=== PATIENT | female | born 1985 | race Two or more races ===

== ENCOUNTER 2016-07-05 12:09 | Emergency (ER) | payer MEDICAID ==
[~2016-07-05] VITALS: Ht 154.9 cm; Wt 68.0 kg
[2016-07-05 12:27] VITALS: BP 131/82
[2016-07-05] MEDS ORDERED: KETOROLAC TROMETH 60MG/2ML VIAL IM ONE (14:15)
== END 2016-07-05 14:33 | disposition home or self-care (01) ==
LOC: ER 12:09
DX: G43.909 Migraine, unspecified, not intractable, without status migrainosus (principal); R42 Dizziness and giddiness; R11.0 Nausea
CPT/HCPCS: 70450; 99284; J1885

== ENCOUNTER 2016-11-22 15:00 | Emergency (ER) | payer MEDICAID ==
[~2016-11-22] VITALS: Ht 154.9 cm; Wt 69.4 kg
[2016-11-22 15:48] VITALS: BP 160/90
[2016-11-22] MEDS ORDERED: KETOROLAC TROMETH 60MG/2ML VIAL IM ONE (17:30)
== END 2016-11-22 18:00 | disposition home or self-care (01) ==
LOC: ER 15:03
DX: G43.909 Migraine, unspecified, not intractable, without status migrainosus (principal); R42 Dizziness and giddiness
CPT/HCPCS: 70450; 96372; 99284; J1885

== ENCOUNTER 2021-07-12 07:30 | Emergency (ER) | payer BC, MEDICAID ==
[~2021-07-12] VITALS: Ht 154.9 cm; Wt 68.0 kg
[2021-07-12 07:31] VITALS: BP 118/80
[2021-07-12 08:23] LABS: Urine Bacteria NONE SEEN /hpf (None Seen); Urine Blood Negative /uL (Negative); Urine Specific Gravity 1.014 (1.001-1.035); Urine WBC 6 /hpf (0 - 5)
[2021-07-12] MEDS ORDERED: KETOROLAC TROMETH 60MG/2ML VIAL IM ONE (08:30)
[2021-07-12] MEDS ORDERED: METH750T22 PO (08:57)
[2021-07-12] MEDS ORDERED: IBUP800T27 PO (08:57)
== END 2021-07-12 09:02 | disposition home or self-care (01) ==
LOC: ER 07:30
DX: S39.012A Strain of muscle, fascia and tendon of lower back, initial encounter (principal); M79.10 Myalgia, unspecified site; Z90.710 Acquired absence of both cervix and uterus; X58.XXXA Exposure to other specified factors, initial encounter; Y93.89 Activity, other specified; Y92.89 Other specified places as the place of occurrence of the external cause; Y99.8 Other external cause status
CPT/HCPCS: 71046; 81001; 96372; 99284; J1885

== ENCOUNTER 2021-08-17 20:08 | Emergency (ER) | payer BC, MEDICAID ==
[~2021-08-17] VITALS: Ht 154.9 cm; Wt 74.6 kg
[~2021-08-17 20:08] MED LIST: IBUP800T27 PO; METH750T22 PO
[2021-08-17 21:33] LABS: Basophils # (auto) 0.1 10 ^3/uL (0-0.2); Basophils % (auto) 1.6 % (0.0-2.0); Eosinophils # (auto) 0 10 ^3/uL (0-0.8); Eosinophils % (auto) 0.2 % (0.0-7.0); Hematocrit 39.7 % (36.0-46.0); Hemoglobin 13.6 g/dL (12.2-16.2); Lymphocytes # (auto) 0.6 10 ^3/uL (0.4-5.4); Lymphocytes % (auto) 6.7 % (10.0-50.0); Mean Corpuscular Hemoglobin 28.3 pg (28.0-32.0); Mean Corpuscular Hgb Conc. 34.4 g/dL (32.0-36.0); Mean Corpuscular Volume 82.3 fL (80.0-100.0); Monocytes # (auto) 0.5 10 ^3/uL (0-1.3); Monocytes % (auto) 5.6 % (0.0-12.0); Neutrophils # (auto) 8.2 10 ^3/uL (1.6-8.6); Neutrophils % (auto) 85.9 % (37.0-80.0); Red Blood Cells 4.82 10^6/uL (4.0-5.20); Red Cell Distribution Width 12.9 % (11.8-14.3); White Blood Cell 9.5 10^3/uL (4.4-10.8)
[2021-08-17 21:34] LABS: Urine Bacteria NONE SEEN /hpf (None Seen); Urine Blood Negative /uL (Negative); Urine Specific Gravity 1.012 (1.001-1.035); Urine WBC 10 /hpf (0 - 5)
[2021-08-17 21:45] LABS: Albumin 3.9 g/dL (3.4-5.0); Calcium 9.6 mg/dL (8.5-10.1); Potassium 3.8 mmol/L (3.5-5.1)
[2021-08-17] MEDS ORDERED: ACETAMINOPHEN 325 MG TAB PO ONE (21:45)
[2021-08-17 21:48] LABS: BUN/Creatinine Ratio 15.2; Bilirubin, Total 0.3 mg/dL (0.2-1.0); Lactic Acid w/Reflex 2.2 mmol/L (0.4-2.0)
[2021-08-17] MEDS ORDERED: IOHEXOL 300 MG/ML 100ML BOTTLE IJ ONE (22:57)
[2021-08-17] MEDS ORDERED: ONDANSETRON HCL 4 MG/2 ML VIAL IV ONE (23:00)
[2021-08-17] MEDS ORDERED: SODIUM CHLORIDE 0.9% 1,000 ML IV ONE (23:00)
[2021-08-17] MEDS ORDERED: MORPHINE SULFATE 4 MG/ML SYR/VIAL IV ONE (23:00)
[2021-08-18 03:53] VITALS: BP 93/48
== END 2021-08-18 03:54 | disposition home or self-care (01) ==
LOC: ER 20:08
DX: R10.9 Unspecified abdominal pain (principal); Z90.710 Acquired absence of both cervix and uterus; Z88.6 Allergy status to analgesic agent
CPT/HCPCS: 36415; 74177; 80053; 81001; 83605; 85025; 87086; 87088; 87186; 96361; 96374; 96375; 99285; J2270; J2405; J7030; Q9967

== ENCOUNTER 2022-05-02 22:02 | Emergency (ER) | payer BC, MEDICAID ==
[~2022-05-02] VITALS: Ht 154.9 cm; Wt 86.4 kg
[2022-05-03] MEDS ORDERED: MORPHINE SULFATE 4 MG/ML SYR/VIAL IV ONE ×2 (00:30→01:00)
[2022-05-03] MEDS ORDERED: ONDANSETRON HCL 4 MG/2 ML VIAL IV ONE ×2 (00:30→01:00)
[2022-05-03] MEDS ORDERED: ONDA-144 PO (02:12)
[2022-05-03] MEDS ORDERED: HYDR-4798 PO (02:12)
[2022-05-03 02:23] VITALS: BP 125/82
== END 2022-05-03 03:40 | disposition home or self-care (01) ==
LOC: ER 22:02 → EDBD 22:02 → ER 05-03 03:39
DX: S82.301A Unspecified fracture of lower end of right tibia, initial encounter for closed fracture (principal); E78.5 Hyperlipidemia, unspecified; Z90.710 Acquired absence of both cervix and uterus; Z79.1 Long term (current) use of non-steroidal anti-inflammatories (NSAID); Z79.899 Other long term (current) drug therapy; Z88.8 Allergy status to other drugs, medicaments and biological substances; W18.39XA Other fall on same level, initial encounter; Y93.89 Activity, other specified; Y92.89 Other specified places as the place of occurrence of the external cause; Y99.8 Other external cause status
CPT/HCPCS: 29515; 73502; 73600; 96374; 96375; 99284; J2270; J2405

== ENCOUNTER 2024-04-07 06:56 | Observation (INO) | payer MEDICAID ==
[2024-04-05 10:50] LABS: Urine Bacteria None Seen /hpf (None Seen)
[2024-04-05 11:56] LABS: Basophils # (auto) 0 10 ^3/uL (0-0.2); Basophils % (auto) 0.6 % (0.0-2.0); Eosinophils # (auto) 0.2 10 ^3/uL (0-0.8); Eosinophils % (auto) 2.9 % (0.0-7.0); Hematocrit 40.3 % (36.0-46.0); Hemoglobin 13.4 g/dL (12.2-16.2); Lymphocytes # (auto) 1.7 10 ^3/uL (0.4-5.4); Lymphocytes % (auto) 30.1 % (10.0-50.0); Mean Corpuscular Hemoglobin 28.3 pg (28.0-32.0); Mean Corpuscular Hgb Conc. 33.1 g/dL (32.0-36.0); Mean Corpuscular Volume 85.4 fL (80.0-100.0); Monocytes # (auto) 0.3 10 ^3/uL (0-1.3); Monocytes % (auto) 5.4 % (0.0-12.0); Neutrophils # (auto) 3.4 10 ^3/uL (1.6-8.6); Nucleated Red Blood Cells % 0.1 %; Platelet Count (auto) 268 10^3/uL (140-450); Red Blood Cells 4.72 10^6/uL (4.0-5.20); Red Cell Distribution Width 13.1 % (11.8-14.3); White Blood Cell 5.6 10^3/uL (4.4-10.8)
[2024-04-05 12:12] LABS: Alanine Aminotransferase 22 U/L (7-40); Albumin 4.3 g/dL (3.2-4.8); Alkaline Phosphatase 106 U/L (46-116); Anion Gap 5 (5-15); Aspartate Aminotransferase 21 U/L (13-40); BUN/Creatinine Ratio 14.9 (10.0-20.0); Blood Urea Nitrogen 11 mg/dL (9-23); Calcium 9.9 mg/dL (8.7-10.4); Carbon Dioxide 31 mmol/L (20-31); Chloride 105 mmol/L (98-107); Potassium 4.2 mmol/L (3.5-5.1); Sodium 141 mmol/L (136-145)
[2024-04-05 12:14] LABS: Bilirubin, Total 0.3 mg/dL (0.2-1.0); Urine Blood Negative /uL (Negative); Urine Clarity Turbid (Clear); Urine Color Light-Yellow (Yellow); Urine Protein, UAD Negative (Negative); Urine Specific Gravity 1.014 (1.001-1.035); Urine Squamous Epithelial Cell MOD /hpf (<5); Urine Urobilinogen Normal (Negative); Urine WBC 4 /HPF (0-5); Urine pH 7.5 (5.0-9.0)
[2024-04-05 12:16] LABS: Glucose 72 mg/dL (74-106)
[2024-04-05 12:23] LABS: INR 0.98 (0.9-1.15); Partial Thromboplastin Time 28.2 SEC (24.5-34.5); Prothrombin Time 10.4 sec (9.3-11.8)
[~2024-04-07] VITALS: Ht 154.9 cm; Wt 67.1 kg
[2024-04-07] VITALS (7 sets, daily range): BP systolic 115–121; BP diastolic 62–70; PULSE 9–132; RESP 10–18; TEMP 98–98.1; O2SAT 92–100
[~2024-04-07 06:56] MED LIST changes: +HYDR-4798 PO; +IBUP-1456 PO; -IBUP800T27 PO; -METH750T22 PO
[2024-04-07] MEDS ORDERED: DexAMETHasone SOD PHOS 10MG/1ML VIAL INJ ONE (08:35)
[2024-04-07] MEDS ORDERED: LIDOCAINE 2% (LOCAL ANESTH.) PF 5ml SDV ONE (08:35)
[2024-04-07] MEDS ORDERED: PROPOFOL 10 MG/ML 20 ML IV ONE (08:35)
[2024-04-07] MEDS ORDERED: fentaNYL CITRATE 100 MCG/2 ML VL ONE (08:35)
[2024-04-07] MEDS ORDERED: ONDANSETRON HCL 4 MG/2 ML VIAL ONE (08:35)
[2024-04-07] MEDS ORDERED: MIDAZOLAM HCL 2MG/2ML 2ml VIAL (1mg/ml) ONE (08:35)
[2024-04-07] MEDS ORDERED: GLYCOPYRROLATE 0.2 MG/ML 1ML VIAL ONE (08:35)
[2024-04-07] MEDS ORDERED: HYDROmorphone HCL 2 MG/ML VL/or syr IV PRN (09:00)
[2024-04-07] MEDS ORDERED: HYDROmorphone HCL 2 MG/ML VL/or syr ONE (09:17)
--- NOTE | 2024-04-07 10:17 | DVHOP2 ---
Operative Report - 2 Report Details Date: 04/07/24 Preop Diagnosis: 1. Left ankle sprain 2. Left ATFL tear 3. Left ankle sprain Postop Diagnosis: Same as preop Surgeon: Khoi Almaguer MD Anesthesiologist: See anesthesia Anesthesia: General Consent: The patient was informed of the risks and benefits of the procedure. These include but are not limited to complications of anesthesia, postoperative infection, incomplete relief of symptoms, recurrence of symptoms, damage to blood vessels, nerves and tendons, deep venous thrombosis, pulmonary embolism and possible need for repeat surgery in the future. Complications: None Estimated Blood Loss: Minimal Fluids: See anesthesia Findings: Consistent with diagnosis Indications for Surgery: Worsening of the foot ankle pain Name of Procedure Performed 1. Left ankle scope with debridement (74110) 2. Left ATFL repair (34872) 3. Left ankle arthrotomy (03023) Procedure Details Procedure Details: PRE-PROCEDURE INFORMATION: In the pre-op holding area, the extremity to be operated on was clearly marked and the patient verified correct laterality of the marking. The patient was transferred to the OR table and placed in a supine position. A timeout was performed in which identification of the correct patient, procedure, location, and materials was done. The left foot and leg were prepped and draped in normal sterile fashion. The foot and leg were exsanguinated and the thigh tourniquet was inflated to 250 mmHg. DESCRIPTION OF PROCEDURE: Attention was directed to the left anterior ankle where stab incisions were made at the medial and lateral ankle gutters. These incisions were deepened through blunt dissection to the level of the capsule, and utilizing the ankle arthroscopy set, the arthroscopy camera and the debrider were placed into the ankle joint and an extensive exam of the ankle joint was performed of the medial and lateral ankle gutters, the posterior talus and tibia as well as the anterior talus and tibia. These areas were visually inspected using the camera. It was noted that there was significant ankle synovitis, including hemorrhagic synovitis throughout the ankle specifically the medial and lateral gutters. There appeared to be no osteochondral defects or lesion. Utilizing arthroscopy debrider and utilizing the total arthroscopy set, there was extensive debridement of the aforementioned ankle synovitis. It was noted prior to performing the arthroscopy that the patient's ankle was maximally dorsiflexed and plantar flexed passively that there was significant audible and palpable clicking within the joint. After this extensive debridement was performed, there was no longer any palpable or audible clicking of this joint. After the ankle scope was performed, the incisions were closed with nylon suture. Attention was directed to the left lateral ankle where a curvilinear longitudinal incision was made just anterior to the distal fibula. This incision was deepened through blunt and sharp dissection to the level of both the fibula and the talus so that both were visualized. Care was taken throughout dissection to avoid damage to neurovascular structures. An arthrotomy of the ankle joint was performed revealing normal appearing joint fluid. It was noted that the anterior talofibular ligament was attenuated and needed repair. The talar dome was inspected and noted to be free of osteochondral lesions. Utilizing a periosteal elevator, the periosteum of the anterior distal fibula was reflected in preparation for the placement of the soft tissue anchors. A soft tissue anchor was then placed proximal and distal to the internal brace. The internal brace was then drilled and placed in the distal aspect of the fibula. The knotless fibertak anchors were then used to recreate the ATFL and CFL ligaments. Prior to the procedure being performed, there was a positive anterior drawer sign. After, this procedure, there was a negative anterior drawer. The capsule was then oversewn with 2-0 Vicryl. The wound was irrigated copiously with normal saline and closed in layers All surgical wounds were irrigated copiously with saline and closed in layers with the aforementioned suture material. A dry sterile dressing was placed on the surgical extremity. The patient was placed in a cam boot POSTOPERATIVE INFORMATION: The patient tolerated the above noted procedure and anesthesia well and was transferred to the PACU with vital signs stable, and vascular status intact with capillary refill intact to all digits. Postoperative instructions reviewed in detail with the patient with written instructions provided. Patient will return to clinic in approximately 10-14 days for first postoperative visit. Patient has the number of the clinic and was instructed to call prior to that time should any problems, questions, or concerns arise. Patient will be admitted for 24 obvious the make sure pain is under control. Condition Good Disposition Still a Patient KHOI ALMAGUER DPM Apr 07, 2024 10:17
[2024-04-07] MEDS: BUPIVACAINE HCL 50 ML ONE (10:37)
[2024-04-07] MEDS: ceFAZolin 2 GM/D5W100ml 100 ML IV ONE (10:38)
[2024-04-07] MEDS ORDERED: MORPHINE SULFATE INJ 2 MG/ml SYRG IV PRN (10:45)
[2024-04-07] MEDS ORDERED: NITROGLYCERIN 0.4 MG SL TAB SL PRN (10:45)
[2024-04-07] MEDS: ONDANSETRON HCL 4 MG/2 ML VIAL IV ONE (10:46)
[2024-04-07] MEDS: HYDROmorphone HCL 2 MG/ML VL/or syr IV PRN (10:47)
[2024-04-07] MEDS: FAMOTIDINE (10MG/ML) 2ML VL IV ONE ×2 (12:46→14:52)
[2024-04-07] MEDS ORDERED: OXYCODONE W/ ACETAMINOPHEN 5/325MG TABLET PO PRN (13:30)
[2024-04-07] MEDS: diphenhdrAMINE HCL 50 MG/1 ML VL IV ONE (14:51)
--- NOTE | 2024-04-07 18:21 | DVHHP2 ---
Review of Systems Allergies: Coded Allergies: Ketorolac Tromethamine (Unverified Allergy, Intermediate, muscle spasm, itchy, 04/05/24) Tramadol (Verified Adverse Reaction, Intermediate, BODY SHAKES/TWITCHES, ) Acetaminophen (Unverified Adverse Reaction, Mild, N/V, 04/05/24) Codeine (Unverified Adverse Reaction, Mild, N/V, 04/05/24) Medications Current Medications Medications Dose Ordered Sig/Gelacio Route Start Time Stop Time Status Last Admin Dose Admin Nitroglycerin 0.4 mg Q5MINP PRN SL 04/07/24 10:45 Morphine Sulfate 2 mg Q30M PRN IV 04/07/24 10:45 Oxycodone/ Acetaminophen 1 tab Q6HP PRN PO 04/07/24 13:30 Hold Exam Vital Signs Vital Signs Date Time Temp Pulse Resp B/P (MAP) Pulse Ox O2 Delivery O2 Flow Rate FiO2 04/07/24 16:00 98.1 77 16 115/62 (79) 96 98.1 04/07/24 11:05 Nasal Cannula 2.0 04/07/24 11:05 92 Labs/Xrays Labs Test 04/05/24 10:46 Range/Units White Blood Count 5.6 4.4-10.8 10^3/uL Red Blood Count 4.72 4.0-5.20 10^6/uL Hemoglobin 13.4 12.2-16.2 g/dL Hematocrit 40.3 36.0-46.0 % Mean Corpuscular Volume 85.4 80.0-100.0 fL Mean Corpuscular Hemoglobin 28.3 28.0-32.0 pg Mean Corpuscular Hemoglobin Concent 33.1 32.0-36.0 g/dL Red Cell Distribution Width 13.1 11.8-14.3 % Platelet Count 268 140-450 10^3/uL Mean Platelet Volume 8.3 6.9-10.8 fL Neutrophils (%) (Auto) 61.0 37.0-80.0 % Lymphocytes (%) (Auto) 30.1 10.0-50.0 % Monocytes (%) (Auto) 5.4 0.0-12.0 % Eosinophils (%) (Auto) 2.9 0.0-7.0 % Basophils (%) (Auto) 0.6 0.0-2.0 % Neutrophils # (Auto) 3.4 1.6-8.6 10 ^3/uL Lymphocytes # (Auto) 1.7 0.4-5.4 10 ^3/uL Monocytes # (Auto) 0.3 0-1.3 10 ^3/uL Eosinophils # (Auto) 0.2 0-0.8 10 ^3/uL Basophils # (Auto) 0 0-0.2 10 ^3/uL Nucleated Red Blood Cells 0.1 % Prothrombin Time 10.4 9.3-11.8 sec Prothrombin Time INR 0.98 0.9-1.15 Activated Partial Thromboplast Time 28.2 24.5-34.5 SEC Urine Color Light-yellow Yellow Urine Clarity Turbid H Clear Urine pH 7.5 5.0-9.0 Urine Specific Frederic 1.014 1.001-1.035 Urine Protein Negative Negative Urine Ketones Negative Negative Urine Blood Negative Negative /uL Urine Nitrite Negative Negative Urine Bilirubin Negative Negative Urine Urobilinogen Normal Negative mg/dL Urine Leukocyte Esterase Negative Negative /uL Urine RBC None seen 0 - 4 /hpf Urine Microscopic WBC 4 0-5 /HPF Urine Squamous Epithelial Cells Mod <5 /hpf Urine Bacteria None seen None Seen /hpf Urine Glucose Normal Normal mg/dL Sodium Level 141 136-145 mmol/L Potassium Level 4.2 3.5-5.1 mmol/L Chloride Level 105 98-107 mmol/L Carbon Dioxide Level 31 20-31 mmol/L Anion Gap 5 5-15 Blood Urea Nitrogen 11 9-23 mg/dL Creatinine 0.74 0.550-1.02 mg/dL Glomerular Filtration Rate Calc 105 >90 mL/min BUN/Creatinine Ratio 14.9 10.0-20.0 Serum Glucose 72 L 74-106 mg/dL Calcium Level 9.9 8.7-10.4 mg/dL Total Bilirubin 0.3 0.2-1.0 mg/dL Aspartate Amino Transferase (AST) 21 13-40 U/L Alanine Aminotransferase (ALT) 22 7-40 U/L Alkaline Phosphatase 106 46-116 U/L Total Protein 7.0 5.7-8.2 g/dL Albumin 4.3 3.2-4.8 g/dL Beta HCG, Quantitative 0.4 L 1.5-4.2 mIU/mL Assessment/Plan Assessment/Plan SEE DICTATED NOTE Plan discussed with: Patient My Orders Orders - QASIM SPARKS MD Procedure Category Date Status Time Morphine Sulfate PHA 04/07/24 Verified Injection 18:30 Ibuprofen Tablet PHA 04/07/24 Verified (Motrin Tablet) 18:30 Basic Metabolic Panel LAB 04/08/24 Verified 06:00 Complete Blood Count LAB 04/08/24 Verified 06:00 Date of Service: Apr 07, 2024 Billing Provider: QASIM SPARKS MD Common Visit Codes: [id number] INP/OBS CARE (HIGH) QASIM SPARKS MD Apr 07, 2024 18:20
[2024-04-07] MEDS ORDERED: IBUPROFEN 600 MG TAB PO PRN (18:30)
--- NOTE | 2024-04-07 18:34 | DVHHP ---
ADMIT DATE: 04/07/2024 HISTORY OF PRESENT ILLNESS: The patient is a 38-year-old lady who was admitted after she underwent arthroscopic surgery on the left ankle from the left ankle sprain and a tendon tear. The patient at this time complains of mild pain. No chest pain or shortness of breath. No history of any bleeding. REVIEW OF SYSTEMS: Review of rest of systems are otherwise currently negative. PAST MEDICAL HISTORY: History of previous right ankle fracture. MEDICATIONS: She takes no medicine on regular basis. ALLERGIES: Several and listed in the records. SOCIAL HISTORY: Denies smoking or alcohol. Lives at home with her and children. FAMILY HISTORY: Negative. PHYSICAL EXAMINATION: GENERAL: The patient is awake, alert. VITAL SIGNS: Temperature of 98.1, pulse 77 per minute, blood pressure 115/62. SHEENT: Unremarkable. NECK: There is no JVD, no pedal edema. LUNGS: Equal bilaterally. No added sounds. CARDIOVASCULAR: S1, S2 is regular, no murmurs. ABDOMEN: Soft. There is no organomegaly. NEUROLOGIC: Nonfocal. MUSCULOSKELETAL: Left ankle is currently in a dressing. ASSESSMENT AND PLAN: Status post left ankle arthroscopic surgery for left ankle sprain and tear. The patient will be placed on pain medications and will ambulate as tolerated with crutches and the boot in place. MD GUICHO Damico/FRANCK TID: [id number] RECEIPT: [id number]
[2024-04-07] MEDS: MORPHINE SULFATE INJ 2 MG/ml SYRG IV PRN (19:52)
--- NOTE | 2024-04-08 18:10 | DVHDS ---
DATE OF DISCHARGE: 04/07/2024 HISTORY OF PRESENT ILLNESS: The patient is a 38-year-old lady, who was admitted after she underwent arthroscopic surgery on the left ankle. HOSPITAL COURSE: The patient was placed on pain medications. The patient had surgery by Dr. Infante. The patient, however, left against medical advice on 04/07/2024. FINAL DIAGNOSES: Therefore, * Status post left ankle arthroscopic surgery for left ankle sprain and tear. * Noncompliance. MD GUICHO Damico/GABINO/MONISHA TID: [id number] RECEIPT: [id number]
== END 2024-04-07 21:02 | disposition left against medical advice (07) ==
LOC: SUR 06:56 → OVERFLOW 10:31 → CENTRAL 15:15
PROVIDERS: ADMIT Podiatrist; ATTEND Internal Medicine
DX: S93.402A Sprain of unspecified ligament of left ankle, initial encounter (principal); M65.872 Other synovitis and tenosynovitis, left ankle and foot; Z79.899 Other long term (current) drug therapy; Z91.199 Patient's noncompliance with other medical treatment and regimen due to unspecified reason; Z86.2 Personal history of diseases of the blood and blood-forming organs and certain disorders involving the immune mechanism; X58.XXXA Exposure to other specified factors, initial encounter; Y93.89 Activity, other specified; Y92.89 Other specified places as the place of occurrence of the external cause; Y99.8 Other external cause status
CPT/HCPCS: 27698; 29898; 36415; 80053; 81001; 84702; 85025; 85610; 85730; 96374; C1713; G0378; J1100; J1171; J1200; J2003; J2250; J2270; J2405; J2704; J3010; J3490

== ENCOUNTER 2024-11-11 21:21 | Inpatient (IN) | payer MEDICAID ==
[~2024-11-11] VITALS: Ht 162.6 cm; Wt 70.9 kg
[2024-11-11 21:55] LABS: Hematocrit 44.6 % (36.0-46.0); Hemoglobin 15.0 g/dL (12.2-16.2); Mean Corpuscular Hemoglobin 27.6 pg (28.0-32.0); Mean Corpuscular Volume 81.9 fL (80.0-100.0); Nucleated Red Blood Cells % 0.0 %
[2024-11-11] MEDS: SODIUM CHLORIDE 0.9% 1,000 ML IV ONE ×2 (21:58→23:10)
--- NOTE | 2024-11-11 22:00 | ED.PDOC ---
Psychiatric HPI Comments HPI: 39-year-old female who came to ER due to overdose. Per , at around 9:00 p.m., 30 minutes prior to arrival, patient intentional swallowed bottle of NyQuil. Patient apparently had an argument with her and she drank the bottle in an attempt to harm herself. Unable to obtain any information from the patient at this time since she is responsive only to deep sternal stimuli. No history of fall or trauma reported. No prior history of suicide attempts. at bedside Initial Vitals BP: 130/71 HR: 129 RR: 20 O2: 96% Temp: Past Medical History: Migraine headaches Past Surgical History: Ankle surgery, abdominal surgery Social History: Denies ETOH, smoking, and drug use. Medications: [place]. Ibuprofen Allergies: Tylenol. Codeine QUOC: HPI: Poor Historian. REVIEW OF SYSTEMS: CONSTITUTIONAL: Denies acute: fever, diaphoresis, chills, HEAD: Denies acute: headache, photophobia Eyes: Denies acute: Double vision, vision loss, eye pain, eye discharge. EARS: Denies acute: tinnitus, hearing loss, ear discharge, ear pain, THROAT: Denies acute: sore throat, swelling, difficulty swallowing , pain with swallowing, change in voice. NECK: Denies acute: neck pain, neck swelling, stiff neck. HEART: Denies acute : chest pain, palpitations, LUNGS: Denies acute: SOB, wheezing, cough, hemoptysis ABDOMEN: Denies acute: abdominal pain, Nausea, Vomiting, diarrhea, melena , hematemesis, hematochezia SKIN: Denies acute: rash, redness, lesions, itchiness. EXTREMITIES: Denies acute: calf pain, numbness, tingling, weakness, denies pain in extremity. Denies acute: Low back pain. Neuro: Denies acute: focal neurological deficit, motor or sensory focal neurological deficit, tremors, seizure like activity, , loss of bowel or bladder function, cauda equina like symptoms. : Denies acute: dysuria, hematuria, flank pain, increase in urinary frequency. PSYCH: Denies acute: hallucination, suicidal ideation, homicidal ideation. FEMALE: Denies acute: abnormal vaginal bleeding, foul odor, unusual discharge. PHYSICAL EXAM: General: -----moderate---acute distress, Multiple facial piercing and tongue piercing. Multiple tattoos Head: normocephalic, atraumatic. Neck: supple, trachea is midline, no swelling. Throat: Normal phonation. Eyes:, no erythema, no purulent discharge, no proptosis, no icterus. Heart: regular tachycardia, no significant murmur appreciated. Lungs: no apparent respiratory distress, No wheezing, no rhonchi, no crackles. No stridors Clear to auscultation bilaterally. Abdomen: non tender to palpation, non distended, soft, no guarding, no rebound, + bowel sounds. Neuro: Altered, drowsy, responds to painful stimuli. Able to answer and not with the head yes or no Skin: no petechia, no purpura, no cyanosis, non-pale, not jaundice. Lower extremities: --no - Pitting edema no deformity, no focal swelling, no calf TTP. Makes eye contact. moves all four extremities. Face: no apparent facial droop. PERRLA, ED COURSE: DISCLAIMER: This medical document was created using an electronic medical record system with voice recognition software and computerized dictation system. Although this document has been carefully reviewed, there might still be some phonetic and t ypographical errors. Occasional wrong-word or "sound-alike" substitutions may have occurred due to the inherent limitations of voice recognition software. These areas are purely typographical due to imperfections of the software programs and do not reflect any compromise in the patient's medical care. Please read the chart carefully and recognize, using context, where these substitutions have occurred. Chief Complaint: Overdose Time Seen by MD: 21:54 Primary Care Provider: Adam Lane Notes: Nurses Notes Information Source: Patient, Spouse Mode of Arrival: Ambulatory Severity: Unable to Care for Self, Unable to Control Self Severity of Pain: Moderate Severity of Mental Status: Moderate Severity of Symptoms: Moderate Timing: Minutes Duration: Since onset Presents with: Bizarre Behavior, Suicidal Ideation Attempt: Ingestion Ingestion: Intentional, Ingestion Observed, Drug(s) Ingested (NyQuil), Amount Ingested (1 bottle NyQuil) Circumstance: Causing a Disturbance Stressors: Family, Relationships Associated signs and symptoms: Depression, Hopeless, Anxiety, Anger Past Medical History PAST MEDICAL HISTORY: High Lipids Past Medical History (Other): Migraine headaches Surgical History: , Hysterectomy Surgical History (Other): Ankle surgery, abdominal surgery LOAD OUT PERSON History: No Pertinent LOAD OUT PERSON History Family History Family History: Reviewed,noncontributory to illness Social History Smoker: Non-Smoker Alcohol: Denies ETOH Use Drugs: Denies Drug Use Lives In: Home Was a procedure done? Was a procedure done?: No Psych Differential Dx OD Differential Dx: Alcohol Abuse, Anxiety, Bipolar Disorder, Conversion Disorder, Delirium, Depression, Drug Overdose, Accidental, Intentional, Panic Disorder, Personality Disorder, Renal Failure, Respiratory Failure, Schizophrenia, Substance Abuse, Suicidal Attempt, Suicidal Gesture X-Ray, Labs, Meds, VS Vital Signs Date Time Temp Pulse Resp B/P (MAP) Pulse Ox O2 Delivery O2 Flow Rate FiO2 11/11/24 22:50 112 11/11/24 22:10 97.0 134 12 115/69 (84) 100 97.0 11/11/24 21:24 97.9 129 20 130/71 96 97.9 Lab Test 11/11/24 23:10 11/11/24 22:09 11/11/24 21:18 Range/Units Lactic Acid Level 3.0 *H 4.0 *H 0.4-2.0 mmol/L Troponin I High Sensitivity 18 20 </=34 ng/L White Blood Count 15.7 H 4.4-10.8 10^3/uL Red Blood Count 5.44 H 4.0-5.20 10^6/uL Hemoglobin 15.0 12.2-16.2 g/dL Hematocrit 44.6 36.0-46.0 % Mean Corpuscular Volume 81.9 80.0-100.0 fL Mean Corpuscular Hemoglobin 27.6 L 28.0-32.0 pg Mean Corpuscular Hemoglobin Concent 33.7 32.0-36.0 g/dL Red Cell Distribution Width 13.7 11.8-14.3 % Platelet Count 362 140-450 10^3/uL Mean Platelet Volume 8.6 6.9-10.8 fL Neutrophils (%) (Auto) 78.3 37.0-80.0 % Lymphocytes (%) (Auto) 15.5 10.0-50.0 % Monocytes (%) (Auto) 5.0 0.0-12.0 % Eosinophils (%) (Auto) 0.6 0.0-7.0 % Basophils (%) (Auto) 0.6 0.0-2.0 % Neutrophils # (Auto) 12.3 H 1.6-8.6 10 ^3/uL Lymphocytes # (Auto) 2.4 0.4-5.4 10 ^3/uL Monocytes # (Auto) 0.8 0-1.3 10 ^3/uL Eosinophils # (Auto) 0.1 0-0.8 10 ^3/uL Basophils # (Auto) 0.1 0-0.2 10 ^3/uL Nucleated Red Blood Cells 0.0 % Sodium Level 139 136-145 mmol/L Potassium Level 3.2 L 3.5-5.1 mmol/L Chloride Level 106 98-107 mmol/L Carbon Dioxide Level 19 L 20-31 mmol/L Anion Gap 14 5-15 Blood Urea Nitrogen 9 9-23 mg/dL Creatinine 1.34 H 0.550-1.02 mg/dL Glomerular Filtration Rate Calc 51 >90 mL/min BUN/Creatinine Ratio 6.7 L 10.0-20.0 Serum Glucose 156 H 74-106 mg/dL Hemoglobin A1c 4.7 <5.7 % A1C Calcium Level 10.0 8.7-10.4 mg/dL Magnesium Level 2.1 1.6-2.6 mg/dL Total Bilirubin 0.3 0.2-1.0 mg/dL Aspartate Amino Transferase (AST) 31 13-40 U/L Alanine Aminotransferase (ALT) 19 7-40 U/L Alkaline Phosphatase 131 H 46-116 U/L Total Protein 8.0 5.7-8.2 g/dL Albumin 5.0 H 3.2-4.8 g/dL Salicylates Level < 3.0 -30 mg/dL Acetaminophen Level 129.0 *H 10.0-20.0 UG/ML Plasma/Serum Blood Alcohol < 3.0 <10 mg/dL [address] [address] Ph: [phone] DIAGNOSTIC IMAGING Diagnostic Imaging Report : [id number] Signed PATIENT: ADONAY GALEANA ACCT: [id number] UNIT: [id number] : 1985 LOC: ER ROOM / BED: / AGE / SEX: 39 / F ADM STATUS: REG ER SERVICE 35 ORDERING PHYSICIAN: ANGELINA SPENCER DO PROCEDURE(s): CXRP - CHEST PORTABLE REASON: overdose, ALOC ORDER NUMBER(s): [id number], ACCESSION NUMBER(s): [id number] CLINICAL HISTORY: overdose, ALOC TECHNIQUE: Single view of the chest was obtained. COMPARISON: CHEST TWO VIEWS ROUTINE on DOS: 07/12/21, CXR2 on DOS: 07/12/21 FINDINGS: The heart size and pulmonary vasculature are normal. The lungs are clear. IMPRESSION: NO ACUTE CARDIOPULMONARY PROCESS. ATED BY: DYLON DELGADILLO MD DICTATED DATE/TIME: 11/11/242246 SIGNED BY: DYLON DELGADILLO MD SIGNED DATE/TIME: 11/11/242246 CC: Time of 1ST Reevaluation: 21:52 Reevaluation 1ST: Unchanged Patient Education/Counseling: Diagnosis, Treatment Family Education/Counseling: Diagnosis, Treatment Comments MDM: patient presented with the above HPI.--NyQuil overdose and altered level of consciousness---workup was initiated. patient was found with the above mentioned diagnosis. the following medications were ordered: please refer to order lists of meds and tests obtained by myself Dr. Spencer. Patient ED course and VS have been stabilized. Patient has been reassessed in the ED and remained in a stable condition. Pertinent incidental findings were discussed with the family. /family voices understanding and is agreeable with plan. Patient has been observed in the ED adequate length of time to insure improvement/stability. Escalation of care considered: Consideration of escalation to observation or admission Poison control was consulted. Acetylcysteine was initiated. Patient earlier was given Narcan. Poison control did not recommend charcoal Both manager social work and tele psych consultation were placed. Patient was ADMITTED to the medicine team for further evaluation and treatment of their presentation. Tylenol levels are trending down. All the reports of any imaging studies that were ordered by myself were reviewed by myself. Departure 1 Departure Time of Disposition: 22:39 Impression: Primary Impression: Tylenol overdose Additional Impression: Drug overdose Disposition: ADMITTED INPATIENT Admit to: Tele Condition: Guarded Discharged With: Self Critical Care Note Critical Care Time?: Yes (35 min-critical care time only) Stability Stability form required: No Heart Score Heart Score: Heart Score Response (Comments) Value History N/A 0 EKG N/A 0 Age N/A 0 Risk Factors N/A 0 Troponin N/A 0 Total 0 I personally scribed for ANGELINA SPENCER DO ([email or web address]) on 11/11/24 at 22:00. Electronically submitted by Omar Stokes ([email or web address]). I personally scribed for ANGELINA SPENCER DO ([email or web address]) on 11/12/24 at 04:08. Electronically submitted by Omar Stokes ([email or web address]). ANGELINA SPENCER DO Nov 11, 2024 22:00
[2024-11-11 22:12] LABS: Alanine Aminotransferase 19 U/L (7-40); Anion Gap 14 (5-15); BUN/Creatinine Ratio 6.7 (10.0-20.0); Calcium 10.0 mg/dL (8.7-10.4); Chloride 106 mmol/L (98-107); Magnesium 2.1 mg/dL (1.6-2.6); Salicylate < 3.0 mg/dL (-30); Sodium 139 mmol/L (136-145); Total Protein 8.0 g/dL (5.7-8.2)
[2024-11-11 22:14] LABS: Albumin 5.0 g/dL (3.2-4.8); Alkaline Phosphatase 131 U/L (46-116); Bilirubin, Total 0.3 mg/dL (0.2-1.0); Blood Urea Nitrogen 9 mg/dL (9-23); Carbon Dioxide 19 mmol/L (20-31); Glucose 156 mg/dL (74-106); Potassium 3.2 mmol/L (3.5-5.1)
[2024-11-11 22:15] LABS: Acetaminophen 129.0 UG/ML (10.0-20.0); Lactic Acid w/Reflex 4.0 mmol/L (0.4-2.0)
[2024-11-11] MEDS: NALOXONE HCL 1MG/ML 2ML SYRINGE IV ONE (22:17)
--- NOTE | 2024-11-11 22:50 | DVH ---
CLINICAL HISTORY: overdose, ALOC TECHNIQUE: Single view of the chest was obtained. COMPARISON: CHEST TWO VIEWS ROUTINE on DOS: 07/12/21, CXR2 on DOS: 07/12/21 FINDINGS: The heart size and pulmonary vasculature are normal. The lungs are clear. IMPRESSION: NO ACUTE CARDIOPULMONARY PROCESS.
[2024-11-11] MEDS ORDERED: MORPHINE SULFATE INJ 2 MG/ml SYRG IV PRN (23:30)
[2024-11-11] MEDS ORDERED: DOCUSATE SOD 100 MG CAP PO PRN (23:30)
[2024-11-11] MEDS ORDERED: POTASSIUM CHL 20 Meq TABLET PO ONE (23:30)
[2024-11-11] MEDS ORDERED: NITROGLYCERIN 0.4 MG SL TAB SL PRN (23:30)
--- NOTE | 2024-11-11 23:31 | DVHHP2 ---
History of Present Illness Reason for Visit: Tylenol overdose History of Present Illness The patient is a 39-year-old female with past medical history of hyperlipidemia and migraine headache who presented to [facility] ED for evaluation of drug overdose. As reported by , patient unintentional swallowed bottle of NyQuil after an argument with the in attempt to harm herself. Patient is unable to give any information at this time seen she is responsive only to deep sternal stimuli. Patient was seen and evaluated in the ED, laboratory data shows WBC 15.7, platelets 362, sodium 139, potassium 3.2, BUN 9, creatinine 1.34, GFR 51, glucose 156, calcium 10.0, troponin 20, lactic acid 4.0 trending down to 1.5, acetaminophen level 129.0 trending down to 73.0, hemoglobin A1c 4.7, blood pressure 115/69, heart rate 112, temperature 97.0 F, O2 saturation 99% oxygen. Chest x-ray show no acute cardiopulmonary process. Please see medication orders section in the computer. On my assessment, at bedside, no diaphoresis, no shortness of breaths, no diaphoresis, no nausea, no vomiting, no fever, no chills. Patient was admitted for further evaluation and medical management. Past Medical History High Lipids, Migraine headaches Past Surgical History , Hysterectomy, Ankle surgery, abdominal surgery Family History Reviewed, noncontributory to the management of this case. Past Social History The patient lives at home, denies smoking, alcohol or illicit drugs abuse. Review of Systems Constitutional: Yes: Chills, Weakness; No: Fever, Sweats, Malaise, Other Eyes: No: Pain, Vision change, Conjunctivae inflammation, Eyelid inflammation, Other, Redness ENT: No: Ear pain, Ear discharge, Nose pain, Nose discharge, Nose congestion, Mouth pain, Mouth swelling, Throat pain, Throat swelling, Other Respiratory: No: Cough, Dry, Shortness of breath, SOB with excertion, Wheezing, Hemoptysis, Pleuritic Pain, Sputum, Wheezing, Other Cardiovascular: No: Chest Pain, Palpitations, Orthopnea, Paroxysmal Noc. Dyspnea, Edema, Lt Headedness, Other Gastrointestinal: No: Nausea, Vomiting, Abdominal Pain, Diarrhea, Constipation, Melena, Hematochezia, Other Genitourinary: No Dysuria, No Frequency, No Incontinence, No Hematuria, No Retention, No Other Musculoskeletal: No: other, neck pain, shoulder pain, arm pain, back pain, hand pain, leg pain, foot pain Skin: No: Rash, Lesions, Jaundice, Bruising, Other Neurological: Other (Tremors); No: Weakness, Numbness, Incoordination, Change in speech, Confusion, Seizures Allergies: Coded Allergies: Ketorolac Tromethamine (Unverified Allergy, Intermediate, muscle spasm, itchy, 04/05/24) Tramadol (Verified Adverse Reaction, Intermediate, BODY SHAKES/TWITCHES, 08/17/21) Acetaminophen (Unverified Adverse Reaction, Mild, N/V, 04/05/24) Codeine (Unverified Adverse Reaction, Mild, N/V, 04/05/24) Medications Current Medications Medications Dose Ordered Sig/Gelacio Route Start Time Stop Time Status Last Admin Dose Admin Acetylcysteine 6800 mg/Dextrose 1,034 ml @ 62.5 mls/hr Q16H IV 11/12/24 04:00 Exam Vital Signs Vital Signs Date Time Temp Pulse Resp B/P (MAP) Pulse Ox O2 Delivery O2 Flow Rate FiO2 11/11/24 22:50 112 11/11/24 22:10 97.0 12 115/69 (84) 100 97.0 General Appearance: Alert, Cooperative, No acute distress, Other (Oriented x2) HEENT: Atraumatic, PERRLA, EOMI, Mucous membr. moist/pink Respiratory: Normal air movement Cardiovascular: Regular rate, Normal S1, Normal S2, No murmurs Abdominal: Normal bowel sounds, Soft, No tenderness, No hepatospenomegaly, No masses Extremities: No clubbing, No cyanosis, No edema, Normal pulses, No tenderness/swelling Skin: No rashes, No breakdown, No significant lesion Neuro: Normal tone, Sensation intact, Cranial nerves 3-12 NL, Reflexes 2+, Other (Generalized weakness) Psych/Mental Status: Mood NL, Other (Altered mental status) Labs/Xrays Labs Test 11/11/24 23:10 11/11/24 22:09 11/11/24 21:18 Range/Units Troponin I High Sensitivity 18 </=34 ng/L White Blood Count 15.7 H 4.4-10.8 10^3/uL Red Blood Count 5.44 H 4.0-5.20 10^6/uL Hemoglobin 15.0 12.2-16.2 g/dL Hematocrit 44.6 36.0-46.0 % Mean Corpuscular Volume 81.9 80.0-100.0 fL Mean Corpuscular Hemoglobin 27.6 L 28.0-32.0 pg Mean Corpuscular Hemoglobin Concent 33.7 32.0-36.0 g/dL Red Cell Distribution Width 13.7 11.8-14.3 % Platelet Count 362 140-450 10^3/uL Mean Platelet Volume 8.6 6.9-10.8 fL Neutrophils (%) (Auto) 78.3 37.0-80.0 % Lymphocytes (%) (Auto) 15.5 10.0-50.0 % Monocytes (%) (Auto) 5.0 0.0-12.0 % Eosinophils (%) (Auto) 0.6 0.0-7.0 % Basophils (%) (Auto) 0.6 0.0-2.0 % Neutrophils # (Auto) 12.3 H 1.6-8.6 10 ^3/uL Lymphocytes # (Auto) 2.4 0.4-5.4 10 ^3/uL Monocytes # (Auto) 0.8 0-1.3 10 ^3/uL Eosinophils # (Auto) 0.1 0-0.8 10 ^3/uL Basophils # (Auto) 0.1 0-0.2 10 ^3/uL Nucleated Red Blood Cells 0.0 % Sodium Level 139 136-145 mmol/L Potassium Level 3.2 L 3.5-5.1 mmol/L Chloride Level 106 98-107 mmol/L Carbon Dioxide Level 19 L 20-31 mmol/L Anion Gap 14 5-15 Blood Urea Nitrogen 9 9-23 mg/dL Creatinine 1.34 H 0.550-1.02 mg/dL Glomerular Filtration Rate Calc 51 >90 mL/min BUN/Creatinine Ratio 6.7 L 10.0-20.0 Serum Glucose 156 H 74-106 mg/dL Calcium Level 10.0 8.7-10.4 mg/dL Magnesium Level 2.1 1.6-2.6 mg/dL Total Bilirubin 0.3 0.2-1.0 mg/dL Aspartate Amino Transferase (AST) 31 13-40 U/L Alanine Aminotransferase (ALT) 19 7-40 U/L Alkaline Phosphatase 131 H 46-116 U/L Total Protein 8.0 5.7-8.2 g/dL Albumin 5.0 H 3.2-4.8 g/dL Salicylates Level < 3.0 -30 mg/dL Acetaminophen Level 129.0 *H 10.0-20.0 UG/ML Plasma/Serum Blood Alcohol < 3.0 <10 mg/dL PATIENT: ADONAY GALEANA MACCT: [id number] UNIT: [id number] : 1985 LOC: ER ROOM / BED: / AGE / SEX: 39 / F ADM STATUS: REG ER SERVICE 35 ORDERING PHYSICIAN: ANGELINA SPENCER DO PROCEDURE(s): CXRP - CHEST PORTABLE REASON: overdose, ALOC ORDER NUMBER(s): [id number], ACCESSION NUMBER(s): [id number] CLINICAL HISTORY: overdose, ALOC TECHNIQUE: Single view of the chest was obtained. COMPARISON: CHEST TWO VIEWS ROUTINE on DOS: 07/12/21, CXR2 on DOS: 07/12/21 FINDINGS: The heart size and pulmonary vasculature are normal. The lungs are clear. IMPRESSION: NO ACUTE CARDIOPULMONARY PROCESS. SEPSIS Sepsis Screen Date sepsis recognized/suspect: Nov 11, 2024 Time Sepsis recognized/suspect: 2129 Recent Procedure: No On Antibiotic Therapy: No Respiratory Rate >20: No Heart Rate >90: No Temp<36 C (96.8 F) or >38.3 C: No SBP <90 or MAP <65 mmHG: No New Acute Mental Status Change: No Is the patient on CPAP, BIPAP,: No Physician Orders Drug Screen (11/11/24 21:32) Training Engineer (11/11/24 ) Urinalysis (11/11/24 21:36) Chest Portable (11/11/24 21:36) Electrocardigram (11/11/24 21:36) Troponin-I Hs (11/12/24 00:36) *Tele Psych Consult (11/11/24 21:58) * Support Worker Consult (11/11/24 ) Pulse Oximetry (11/11/24 22:32) Oxygen Setup (11/11/24 22:32) Call Posion Control (11/11/24 22:32) Heplock Iv (11/11/24 22:32) Urine (11/11/24 22:32) Sodium Chloride 0.9% (11/11/24 22:45) Acetylcysteine 200mg/Ml Iv Nicol (Acetadot (11/11/24 23:15) Acetylcysteine 200mg/Ml Iv Nicol (Acetadot (11/12/24 00:00) Acetylcysteine 200mg/Ml Iv Nicol (Acetadot (11/12/24 04:00) Potassium Er Tablet (Klor-Con Tablet) (11/11/24 23:30) Hemoglobin A1c (11/11/24 23:16) Ceftriaxone Ivpb Rocephin (11/12/24 09:00) Ceftriaxone Ivpb Rocephin (11/11/24 23:30) Acetaminophen (11/12/24 04:00) NS (11/11/24 23:30) NS (11/11/24 23:30) Lactic Acid W/ Reflex Order (11/11/24 23:16) Lactic Acid W/ Reflex Order (11/12/24 02:00) Admit (11/11/24 23:16) Allergies (11/11/24 23:16) Code Status (11/11/24 23:16) Oxygen Per Hour (11/11/24 23:16) Ondansetron Hcl (Zofran) (11/11/24 23:30) Docusate Sodium Capsule (Colace Capsule) (11/11/24 23:30) Fall Risk Precautions In Place QSHIFT (11/11/24 23:16) Complete Blood Count (11/12/24 04:00) Comprehensive Metabolic Panel (11/12/24 04:00) Cardiac Diet-2gna,Lofat,Lochol (11/12/24 Breakfast) Condition: Serious (11/11/24 23:16) Maintain Bed Rest (11/11/24 23:16) Sequential Compression Device (11/11/24 ) Nitroglycerin Sublingual (Ntrostat Subli (11/11/24 23:30) Vital Signs Date Time Temp Pulse Resp B/P (MAP) Pulse Ox O2 Delivery O2 Flow Rate FiO2 11/11/24 22:50 112 11/11/24 22:10 97.0 134 12 115/69 (84) 100 97.0 11/11/24 21:24 97.9 129 20 130/71 96 97.9 Laboratory Tests Test 11/11/24 21:18 11/11/24 23:10 Lactic Acid Level 4.0 mmol/L (0.4-2.0) *H Pending White Blood Count 15.7 10^3/uL (4.4-10.8) H Medications Medications Dose Ordered Sig/Gelacio Route Start Time Stop Time Status Last Admin Dose Admin Naloxone HCl 2 mg ONCE ONCE IV 11/11/24 21:45 11/11/24 21:46 DC 11/11/24 22:17 2 MG Sodium Chloride 1,000 ml @ 1,000 mls/hr Q1H ONCE IV 11/11/24 21:45 11/11/24 22:44 DC 11/11/24 21:58 1,000 MLS/HR Sodium Chloride 1,000 ml @ 1,000 mls/hr Q1H ONCE IV 11/11/24 22:45 11/11/24 23:44 11/11/24 23:10 1,000 MLS/HR Assessment/Plan Assessment/Plan Tylenol overdose Drug overdose Hypokalemia Leukocytosis, unspecified Generalized weakness Plan 1. Admit to telemetry unit 2. Breathing treatment 3. Pain control management 4. Management of fluids and electrolytes 5. Consultation for hospitalist 6. Diagnostic tests chest x-ray 7. DVT prophylaxis-on SCDs 8. Repeat labs CBC, CMP in a.m. 9. Continue with current medical management 10. Treatment plan discussed with patient/ and RN. Patient/ verbalized understanding. Plan discussed with: Patient, Other (RN) My Orders Orders - ELISA CACERES DNP Procedure Category Date Status Time Potassium Er Tablet PHA 11/11/24 Verified (Klor-Con Tablet) 23:30 Hemoglobin A1c LAB 11/11/24 Verified 23:16 Ceftriaxone Ivpb PHA 11/12/24 Verified Rocephin 09:00 Ceftriaxone Ivpb PHA 11/11/24 Verified Rocephin 23:30 Acetaminophen LAB 11/12/24 Verified 04:00 NS PHA 11/11/24 Verified 23:30 NS PHA 11/11/24 Verified 23:30 Lactic Acid W/ Reflex LAB 11/11/24 Verified Order 23:16 Lactic Acid W/ Reflex LAB 11/12/24 Verified Order 02:00 Admit ADMIT 11/11/24 Verified 23:16 Allergies ROSAMARIA 11/11/24 Verified 23:16 Code Status CODE 11/11/24 Verified 23:16 Oxygen Per Hour RT 11/11/24 Verified 23:16 Ondansetron Hcl [facility] 11/11/24 Verified (Zofran) 23:30 Docusate Sodium [facility] 11/11/24 Verified Capsule (Colace 23:30 Fall Risk Precautions [facility] 11/11/[address] 23:16 Complete Blood Count LAB 11/12/24 Verified 04:00 Comprehensive LAB 11/12/24 Verified Metabolic Panel 04:00 Cardiac DIET 11/12/24 Verified Diet-2gna,Lofat,Lochol Breakfast Condition: Serious [facility] 11/11/24 Verified 23:16 Maintain Bed Rest [facility] 11/11/24 Verified 23:16 Sequential [facility] 11/11/24 Verified Compression Device Nitroglycerin [facility] 11/11/24 Verified Sublingual (Ntrostat 23:30 Problem List: (1) Tylenol overdose (2) Drug overdose (3) Hypokalemia (4) Leukocytosis, unspecified (5) Generalized weakness Date of Service: Nov 11, 2024 Billing Provider: ELISA CACERES DNP Common Visit Codes: [id number] INP/OBS CARE (HIGH) ELISA CACERES DNP Nov 11, 2024 23:31
[2024-11-12] VITALS (10 sets, daily range): BP systolic 100–122; BP diastolic 54–73; PULSE 71–109; RESP 16–18; TEMP 97–98.5; O2SAT 97–100
[2024-11-12] MEDS ORDERED: ACETYLCYSTEINE 200MG/ML IV SOL 3,400 MG in D5W 5% 500 ML IV ONE
[2024-11-12] MEDS: SODIUM CHLORIDE 0.9% 500 ML IV ONE (00:11)
[2024-11-12] MEDS: ACETYLCYSTEINE 200MG/ML IV SOL 10,200 MG in D5W 5% 250 ML IV ONE (00:34)
[2024-11-12] MEDS: ACETYLCYSTEINE 6GM/30ml (200mg/ml) IV SOLN 30ML IV ONE ×2 (00:40→02:12)
[2024-11-12] MEDS: SODIUM CHLORIDE 0.9% 1,000 ML IV SCH (01:18)
[2024-11-12] MEDS: POTASSIUM CHL 20MEQ/100ML 100 ML IV SCH (01:19)
[2024-11-12] MEDS: ACETYLCYSTEINE 200MG/ML IV SOL 3,400 MG in D5W 5% 500 ML IV ONE (02:12)
[2024-11-12 02:19] LABS: Urine Protein, UAD Negative (Negative)
[2024-11-12 02:28] LABS: Opiate Scree,Urine Neg (NEGATIVE); Phencyclidine Screen, Urine Neg (NEGATIVE)
[2024-11-12 02:35] LABS: Amphetamine Screen, Urine Neg (NEGATIVE); Barbiturate Scree,Urine Neg (NEGATIVE); Benzodiazephine Screen, Urine Neg (NEGATIVE); Cannabinoid Screen, Urine Neg (NEGATIVE); Cocaine Screen, Urine Neg (NEGATIVE)
[2024-11-12] MEDS ORDERED: ACETYLCYSTEINE 200MG/ML IV SOL 6,800 MG in D5W 5% 1,000 ML IV SCH (04:00)
--- NOTE | 2024-11-12 06:34 | ECG ---
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
[2024-11-12 06:42] LABS: Hematocrit 41.2 % (36.0-46.0); Hemoglobin 13.6 g/dL (12.2-16.2); Mean Corpuscular Hemoglobin 27.7 pg (28.0-32.0); Mean Corpuscular Volume 83.8 fL (80.0-100.0); Nucleated Red Blood Cells % 0.0 %
[2024-11-12] MEDS: ACETYLCYSTEINE 200MG/ML IV SOL 6,800 MG in D5W 5% 1,000 ML IV SCH (06:52)
[2024-11-12 06:57] LABS: Alanine Aminotransferase 17 U/L (7-40); Albumin 3.8 g/dL (3.2-4.8); Alkaline Phosphatase 83 U/L (46-116); Anion Gap 12 (5-15); Carbon Dioxide 20 mmol/L (20-31); Glucose 105 mg/dL (74-106); Potassium 4.2 mmol/L (3.5-5.1); Sodium 144 mmol/L (136-145); Total Protein 6.3 g/dL (5.7-8.2)
[2024-11-12 06:58] LABS: Bilirubin, Total 0.3 mg/dL (0.2-1.0)
[2024-11-12 06:59] LABS: BUN/Creatinine Ratio 6.5 (10.0-20.0); Blood Urea Nitrogen < 5 mg/dL (9-23); Calcium 7.8 mg/dL (8.7-10.4); Chloride 112 mmol/L (98-107)
[2024-11-12] MEDS: ONDANSETRON HCL 4 MG/2 ML VIAL IV PRN (09:03)
--- NOTE | 2024-11-12 10:18 | DVHPN2 ---
Assessment/Plan Assessment/Plan 39 F admitted for Tylenol ingestion with intention to self harm. On admission tachycardic, nonresponsive, with leukocytosis, hypocalcemic, elevated trop, elevated lactate, and high Tylenol levels which now normal. Received Nacetylcysteine, naloxone, fluids, and ceftriaxone. She reported prior SI and self harm behavior since teenage years, this is first SA, not on any meds, no halucinations, coherent train of thoughts, sad affect. Physical exam AOx4 ctab abdomen soft no hepatomegaly no le edema Labs EKG imaging trop 30-40s acetaminophen high resolved lactate high resolved Assessment and plan intentional drug ingestion Tylenol overdose suicide attempt type 2 DC demand ischemia lactic acidosis acute toxic encephalopathy possible underlying personality disorder or MDD NAC x3 etco medical hold tele psych for 5150 likely will need transfer to inpatient psych telemetry trend lft dc Tylenol sitter diet NPO dvt ppx scd full code time spent 45 minutes Plan discussed with: Other Date of Service: Nov 12, 2024 Billing Provider: ROX TORO MD Common Visit Codes: [id number] INP/OBS CARE(HIGH) ROX TORO MD Nov 12, 2024 10:18
--- NOTE | 2024-11-12 11:44 | DVHINCON2 ---
Date of Service if different f: Nov 12, 2024 Time of Service: 11:43 Consultation ([place]) Labs Laboratory Tests Test 11/11/24 21:18 11/12/24 02:02 11/12/24 02:23 11/12/24 06:23 Hemoglobin A1c 4.7 % A1C (<5.7) Magnesium Level 2.1 mg/dL (1.6-2.6) Salicylates Level < 3.0 mg/dL (-30) Plasma/Serum Blood Alcohol < 3.0 mg/dL (<10) Urine Color Colorless (Yellow) Urine Clarity Clear (Clear) Urine pH 6.0 (5.0-9.0) Urine Specific [place] 1.008 (1.001-1.035) Urine Protein Negative (Negative) Urine Ketones 1+ (Negative) Urine Blood Negative /uL (Negative) Urine Nitrite Negative (Negative) Urine Bilirubin Negative (Negative) Urine Urobilinogen Normal mg/dL (Negative) Urine Leukocyte Esterase Negative /uL (Negative) Urine RBC <1 /hpf (0 - 4) Urine Microscopic WBC 1 /HPF (0-5) Urine Squamous Epithelial Cells Few /hpf (<5) Urine Bacteria Few /hpf (None Seen) Urine Glucose Normal mg/dL (Normal) Urine Opiates Screen Neg (NEGATIVE) Urine Fentanyl Screen Neg (NEGATIVE) Urine Barbiturates Screen Neg (NEGATIVE) Urine Phencyclidine Screen Neg (NEGATIVE) Urine Amphetamines Screen Neg (NEGATIVE) Urine Benzodiazepines Screen Neg (NEGATIVE) Urine Cocaine Screen Neg (NEGATIVE) Urine Cannabinoids Screen Neg (NEGATIVE) Lactic Acid Level 1.5 mmol/L (0.4-2.0) White Blood Count 11.7 10^3/uL (4.4-10.8) Red Blood Count 4.92 10^6/uL (4.0-5.20) Hemoglobin 13.6 g/dL (12.2-16.2) Hematocrit 41.2 % (36.0-46.0) Mean Corpuscular Volume 83.8 fL (80.0-100.0) Mean Corpuscular Hemoglobin 27.7 pg (28.0-32.0) Mean Corpuscular Hemoglobin Concent 33.0 g/dL (32.0-36.0) Red Cell Distribution Width 13.8 % (11.8-14.3) Platelet Count 251 10^3/uL (140-450) Mean Platelet Volume 8.2 fL (6.9-10.8) Neutrophils (%) (Auto) 78.9 % (37.0-80.0) Lymphocytes (%) (Auto) 13.2 % (10.0-50.0) Monocytes (%) (Auto) 7.6 % (0.0-12.0) Eosinophils (%) (Auto) 0.0 % (0.0-7.0) Basophils (%) (Auto) 0.3 % (0.0-2.0) Neutrophils # (Auto) 9.3 10 ^3/uL (1.6-8.6) Lymphocytes # (Auto) 1.5 10 ^3/uL (0.4-5.4) Monocytes # (Auto) 0.9 10 ^3/uL (0-1.3) Eosinophils # (Auto) 0 10 ^3/uL (0-0.8) Basophils # (Auto) 0 10 ^3/uL (0-0.2) Nucleated Red Blood Cells 0.0 % Sodium Level 144 mmol/L (136-145) Potassium Level 4.2 mmol/L (3.5-5.1) Chloride Level 112 mmol/L (98-107) Carbon Dioxide Level 20 mmol/L (20-31) Anion Gap 12 (5-15) Blood Urea Nitrogen < 5 mg/dL (9-23) Creatinine 0.77 mg/dL (0.550-1.02) Glomerular Filtration Rate Calc 100 mL/min (>90) BUN/Creatinine Ratio 6.5 (10.0-20.0) Serum Glucose 105 mg/dL (74-106) Calcium Level 7.8 mg/dL (8.7-10.4) Total Bilirubin 0.3 mg/dL (0.2-1.0) Aspartate Amino Transf (AST/SGOT) 20 U/L (13-40) Alanine Aminotransferase (ALT/SGPT) 17 U/L (7-40) Alkaline Phosphatase 83 U/L (46-116) Troponin I High Sensitivity 38 ng/L (</=34) Total Protein 6.3 g/dL (5.7-8.2) Albumin 3.8 g/dL (3.2-4.8) Test 11/12/24 08:06 Acetaminophen Level 8.0 UG/ML (10.0-20.0) Vitals Vital Signs Date Time Temp Pulse Resp B/P (MAP) Pulse Ox O2 Delivery O2 Flow Rate FiO2 11/12/24 09:15 98.5 91 17 122/65 (84) 98 98.5 11/12/24 08:00 Room Air* 0 21 Current medications Current Medications Medications Dose Ordered Sig/Gelacio Route Start Time Stop Time Status Last Admin Dose Admin Ceftriaxone Sodium 50 ml @ 100 mls/hr DAILY@09 IV 11/12/24 09:00 11/12/24 08:49 100 MLS/HR PSYCHIATRY CONSULTATION INITIAL EVALUATION REASON FOR CONSULT: Intentional Nyquil Overdose HPI: 39 W currently hospitalized after Nyquil overdose. Pt had been thinking about it for a while, but this is the first time she has ever attempted suicide. Yesterday, pt felt that her family would be better off without her. This is after she and her got into an argument after he found out she was texting someone else. Pt took the whole bottle of Nyquil with water. She denies concurrent use of drugs or alcohol. Pt knew she would get sick, possibly . Pt has access to firearms, one in her name, and one in her husbands name. Pt has 2 children at home, 19yo and 10yo. At the time, pt did not think about them. Pt denies current SI. She does feel bad, feel sad. Pt denies prior or current symptoms of elevated mood or psychosis. PSYCHIATRIC HISTORY: DIAGNOSIS: Depression ADMISSIONS: None prior MEDICATION TRIALS: On medications 4 years ago, cannot recall the names. OUTPATIENT CARE: In the past, none currently. THERAPY: In the past, none currently SI/SELF-INJURY/SUICIDE ATTEMPT: History of SI, no prior SIB or SA. Pt does possess a firearm, as does her . 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 She is calm, cooperative, and somewhat withdrawn during the interview. Speech is normal in rate, rhythm, and volume. Mood is reported as sad with associated guilt and hopelessness, and affect is constricted but congruent with her stated mood. Thought processes are linear, logical, and goal-directed. Thought content is notable for a recent intentional overdose with suicidal intent; she currently denies suicidal ideation, homicidal ideation, or psychotic thoughts. No hallucinations or other perceptual disturbances are elicited. She is alert and oriented to person, place, and time, with memory grossly intact. Insight is limited, as she minimizes her ongoing risk despite the recent suicide attempt, and judgment is impaired as demonstrated by her ingestion of a full bottle of Nyquil without consideration of consequences. Differential Diagnosis (DDx) Major Depressive Disorder Adjustment Disorder with Depressed Mood Chronic PainRelated Depression ASSESSMENT: This is a 39-year-old female with history of depression, no prior psychiatric admissions, who presented after intentional Nyquil overdose in the setting of acute marital conflict. She endorsed suicidal thoughts that her family would be better off without her and ingested a whole bottle of Nyquil with intent to . She denies current SI but demonstrates poor insight, remorse, and ongoing depressive symptoms. Risk factors include recent suicide attempt, access to firearms (hers and husbands), limited outpatient care, chronic pain, and family stress. Protective factors include children at home, but these were not considered during her attempt, diminishing protective value. The patient represents a danger to self and meets criteria for 5150 involuntary psychiatric hold. Given access to firearms, a firearm prohibition is indicated. She requires inpatient psychiatric admission for safety, stabilization, and treatment initiation. RECOMMENDATIONS: 1. Legal: Initiate 5150 hold for danger to self. Until [facility] staff available to write hold, initiate a 1799 which is valid for 24 hours, and renewable another 24 hours. Order 1:1 sitter until transfer. Patient will require firearm prohibition paperwork (patient and possess firearms). 2. Disposition: Refer for inpatient psychiatric admission for further evaluation and stabilization. 3. Medications: Defer initiation of antidepressants until inpatient psychiatric team evaluation. 4. Medical Considerations - Monitor for medical sequelae of Nyquil (acetaminophen, dextromethorphan, doxylamine) ingestion. - Continue medical management and monitoring for hepatic function given risk of acetaminophen toxicity. 5. Other - Collateral: Recommend obtaining collateral information from /family regarding access to firearms and psychosocial supports. - Safety: Ensure firearms are secured/removed from home. - Psychoeducation: Provide family with education about suicide risk, warning signs, and emergency resources. KYLAH GREEN MD Nov 12, 2024 11:44
[2024-11-13] VITALS (7 sets, daily range): BP systolic 108–129; BP diastolic 54–72; PULSE 59–93; RESP 17–20; TEMP 98.1–98.8; O2SAT 96–98
[2024-11-13 06:38] LABS: Hematocrit 35.1 % (36.0-46.0); Hemoglobin 11.8 g/dL (12.2-16.2); Mean Corpuscular Hemoglobin 28.0 pg (28.0-32.0); Mean Corpuscular Volume 83.0 fL (80.0-100.0); Nucleated Red Blood Cells % 0.0 %
[2024-11-13 07:02] LABS: Alkaline Phosphatase 70 U/L (46-116); Anion Gap 10 (5-15); Carbon Dioxide 23 mmol/L (20-31); Glucose 85 mg/dL (74-106)
[2024-11-13 07:03] LABS: Albumin 3.4 g/dL (3.2-4.8)
[2024-11-13 07:04] LABS: Bilirubin, Total 0.4 mg/dL (0.2-1.0)
[2024-11-13 07:06] LABS: Calcium 8.5 mg/dL (8.7-10.4); Chloride 112 mmol/L (98-107); Potassium 3.7 mmol/L (3.5-5.1); Sodium 145 mmol/L (136-145); Total Protein 5.6 g/dL (5.7-8.2)
[2024-11-13 07:07] LABS: Alanine Aminotransferase 14 U/L (7-40); BUN/Creatinine Ratio 10.7 (10.0-20.0); Blood Urea Nitrogen 8 mg/dL (9-23)
[2024-11-13] MEDS: IBUPROFEN 600 MG TAB PO PRN (12:36)
--- NOTE | 2024-11-13 18:22 | DVHPN2 ---
Subjective I am assuming the care of the patient from today onwards. Patient is here for intentional Tylenol overdose with suicide attempt. Currently has a Changes from previous H/P or p: No Changes Eyes: No Pain, No Vision change, No Conjunctivae inflammation, No Eyelid inflammation, No Other, No Redness ENT: No Ear pain, No Ear discharge, No Nose pain, No Nose discharge, No Nose congestion, No Mouth pain, No Mouth swelling, No Throat pain, No Throat swelling, No Other Cardiovascular: No Chest Pain, No Palpitations, No Orthopnea, No Paroxysmal Noc. Dyspnea, No Edema, No Lt Headedness, No Other Respiratory: No Cough, No Dry, No Shortness of breath, No SOB with excertion, No Wheezing, No Hemoptysis, No Pleuritic Pain, No Sputum, No Other Gastrointestinal: No Nausea, No Vomiting, No Abdominal Pain, No Diarrhea, No Constipation, No Melena, No Hematochezia, No Other Genitourinary: No Dysuria, No Frequency, No Incontinence, No Hematuria, No Retention, No Other Musculoskeletal: No other, No neck pain, No shoulder pain, No arm pain, No back pain, No hand pain, No leg pain, No foot pain Skin: No Rash, No Lesions, No Jaundice, No Bruising, No Other Objective Vitals Vital Signs Date Time Temp Pulse Resp B/P (MAP) Pulse Ox O2 Delivery O2 Flow Rate FiO2 11/13/24 16:41 98.5 93 20 129/54 (79) 98 98.5 11/13/24 08:00 Room Air* 0 21 Intake/Output Intake and Output 11/13/24 07:00 Intake Total 1050 ml Output Total 402 ml Balance 648 ml Intake Oral 450 ml IV Total 600 ml Output Urine Total 400 ml Stool Total 2 ml Exam HEENT pupils are reactive Neck is supple CV is S1-S2 regular rate and rhythm Respiratory are clear GI positive bowel sound Extremity no 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 Medications Current Medications Medications Dose Ordered Sig/Gelacio Route Start Time Stop Time Status Last Admin Dose Admin Ceftriaxone Sodium 50 ml @ 100 mls/hr DAILY@09 IV 11/12/24 09:00 11/13/24 10:29 100 MLS/HR Ibuprofen 600 mg Q8HP PRN PO 11/13/24 11:45 11/13/24 12:36 600 MG Laboratory Results Laboratory Tests 11/13/24 04:16 Chemistry Test 11/13/24 04:16 Albumin 3.4 g/dL (3.2-4.8) Calcium Level 8.5 mg/dL (8.7-10.4) L Total Protein 5.6 g/dL (5.7-8.2) L LFT Test 11/13/24 04:16 Alanine Aminotransferase (ALT) 14 U/L (7-40) Alkaline Phosphatase 70 U/L (46-116) Aspartate Amino Transferase (AST) 17 U/L (13-40) Total Bilirubin 0.4 mg/dL (0.2-1.0) Urinalysis Test 11/12/24 02:02 Urine Color Colorless (Yellow) Urine Clarity Clear (Clear) Urine pH 6.0 (5.0-9.0) Urine Specific [place] 1.008 (1.001-1.035) Urine Protein Negative (Negative) Urine Ketones 1+ (Negative) H Urine Blood Negative /uL (Negative) Urine Nitrite Negative (Negative) Urine Bilirubin Negative (Negative) Urine Urobilinogen Normal mg/dL (Negative) Urine Leukocyte Esterase Negative /uL (Negative) Urine RBC <1 /hpf (0 - 4) Urine Microscopic WBC 1 /HPF (0-5) Urine Squamous Epithelial Cells Few /hpf (<5) Urine Bacteria Few /hpf (None Seen) H Urine Glucose Normal mg/dL (Normal) Assessment/Plan Assessment/Plan 39-year-old female who initially presented to the hospital with intentional overdose of NyQuil want to harm herself found to have 1. Tylenol toxicity 2. Intentional drug overdose with the intention of self inflicting harm/suicidal attempt 3. Lactic acidosis 4. Acute toxic encephalopathy currently resolved 5. Major depression with a depressed mood currently on 5150 -keep the patient on 5150, we will follow up tele psych recommendations . Plan discussed with: Patient My Orders Orders - RANDELL RHODES MD Procedure Category Date Status Time Ibuprofen Tablet PHA 11/13/24 In Process (Motrin Tablet) 11:45 Date of Service: Nov 13, 2024 Billing Provider: RANDELL RHODES MD Common Visit Codes: [id number] INP/OBS CARE(MOD) RANDELL RHODES MD Nov 13, 2024 18:22
[2024-11-14] VITALS (8 sets, daily range): BP systolic 110–137; BP diastolic 70–86; PULSE 61–98; RESP 16–20; TEMP 98.1–99; O2SAT 98–99
[2024-11-14 16:45] LABS: INR 1.03 (0.9-1.15); Prothrombin Time 10.9 sec (9.3-11.8)
--- NOTE | 2024-11-14 18:45 | DVHPN2 ---
Subjective Patient denies any suicidal ideas or thoughts, we will reconsult tele psychiatry. Changes from previous H/P or p: No Changes Eyes: No Pain, No Vision change, No Conjunctivae inflammation, No Eyelid inflammation, No Other, No Redness ENT: No Ear pain, No Ear discharge, No Nose pain, No Nose discharge, No Nose congestion, No Mouth pain, No Mouth swelling, No Throat pain, No Throat swelling, No Other Cardiovascular: No Chest Pain, No Palpitations, No Orthopnea, No Paroxysmal Noc. Dyspnea, No Edema, No Lt Headedness, No Other Respiratory: No Cough, No Dry, No Shortness of breath, No SOB with excertion, No Wheezing, No Hemoptysis, No Pleuritic Pain, No Sputum, No Other Gastrointestinal: No Nausea, No Vomiting, No Abdominal Pain, No Diarrhea, No Constipation, No Melena, No Hematochezia, No Other Genitourinary: No Dysuria, No Frequency, No Incontinence, No Hematuria, No Retention, No Other Musculoskeletal: No other, No neck pain, No shoulder pain, No arm pain, No back pain, No hand pain, No leg pain, No foot pain Skin: No Rash, No Lesions, No Jaundice, No Bruising, No Other Objective Vitals Vital Signs Date Time Temp Pulse Resp B/P (MAP) Pulse Ox O2 Delivery O2 Flow Rate FiO2 11/14/24 16:54 98.9 80 20 137/86 (103) 98 98.9 11/14/24 08:00 Room Air* 0 21 Intake/Output Intake and Output 11/14/24 07:00 Intake Total 1220 ml Balance 1220 ml Intake Oral 1170 ml IV Total 50 ml # Voids 5 Exam HEENT pupils are reactive Neck is supple CV is S1-S2 regular rate and rhythm Respiratory are clear GI positive bowel sound 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 Medications Current Medications Medications Dose Ordered Sig/Gelacio Route Start Time Stop Time Status Last Admin Dose Admin Ibuprofen 600 mg Q8HP PRN PO 11/13/24 11:45 11/14/24 16:39 600 MG Laboratory Results Laboratory Tests 11/13/24 04:16 Coagulation Test 11/14/24 15:47 Prothrombin Time 10.9 sec (9.3-11.8) Prothrombin Time INR 1.03 (0.9-1.15) Urinalysis Test 11/12/24 02:02 Urine Color Colorless (Yellow) Urine Clarity Clear (Clear) Urine pH 6.0 (5.0-9.0) Urine Specific [place] 1.008 (1.001-1.035) Urine Protein Negative (Negative) Urine Ketones 1+ (Negative) H Urine Blood Negative /uL (Negative) Urine Nitrite Negative (Negative) Urine Bilirubin Negative (Negative) Urine Urobilinogen Normal mg/dL (Negative) Urine Leukocyte Esterase Negative /uL (Negative) Urine RBC <1 /hpf (0 - 4) Urine Microscopic WBC 1 /HPF (0-5) Urine Squamous Epithelial Cells Few /hpf (<5) Urine Bacteria Few /hpf (None Seen) H Urine Glucose Normal mg/dL (Normal) Assessment/Plan Assessment/Plan 39-year-old female who initially presented to the hospital with intentional overdose of NyQuil want to harm herself found to have 1. Tylenol toxicity 2. Intentional drug overdose with the intention of self inflicting harm/suicidal attempt 3. Lactic acidosis 4. Acute toxic encephalopathy currently resolved 5. Major depression with a depressed mood currently on 5150 -keep the patient on 5150, we will follow up tele psych recommendations . Plan discussed with: Patient My Orders Orders - RANDELL RHODES MD Procedure Category Date Status Time *Tele Psych Consult CONS 11/14/24 Transmitted 16:04 Date of Service: Nov 14, 2024 Billing Provider: RANDELL RHODES MD Common Visit Codes: [id number] INP/OBS CARE(MOD) RANDELL RHODES MD Nov 14, 2024 18:45
[2024-11-15] VITALS (7 sets, daily range): BP systolic 105–119; BP diastolic 67–75; PULSE 76–89; RESP 17–18; TEMP 36.8; O2SAT 89–99
--- NOTE | 2024-11-15 13:45 | DVHINCON2 ---
Date of Service if different f: Nov 15, 2024 Time of Service: 13:43 Consultation ([facility]) Consulting Physician: KYLAH GREEN MD Labs Laboratory Tests Test 11/11/24 21:18 11/12/24 02:02 11/12/24 02:23 11/12/24 06:23 Hemoglobin A1c 4.7 % A1C (<5.7) Magnesium Level 2.1 mg/dL (1.6-2.6) Salicylates Level < 3.0 mg/dL (-30) Plasma/Serum Blood Alcohol < 3.0 mg/dL (<10) Urine Color Colorless (Yellow) Urine Clarity Clear (Clear) Urine pH 6.0 (5.0-9.0) Urine Specific [place] 1.008 (1.001-1.035) Urine Protein Negative (Negative) Urine Ketones 1+ (Negative) Urine Blood Negative /uL (Negative) Urine Nitrite Negative (Negative) Urine Bilirubin Negative (Negative) Urine Urobilinogen Normal mg/dL (Negative) Urine Leukocyte Esterase Negative /uL (Negative) Urine RBC <1 /hpf (0 - 4) Urine Microscopic WBC 1 /HPF (0-5) Urine Squamous Epithelial Cells Few /hpf (<5) Urine Bacteria Few /hpf (None Seen) Urine Glucose Normal mg/dL (Normal) Urine Opiates Screen Neg (NEGATIVE) Urine Fentanyl Screen Neg (NEGATIVE) Urine Barbiturates Screen Neg (NEGATIVE) Urine Phencyclidine Screen Neg (NEGATIVE) Urine Amphetamines Screen Neg (NEGATIVE) Urine Benzodiazepines Screen Neg (NEGATIVE) Urine Cocaine Screen Neg (NEGATIVE) Urine Cannabinoids Screen Neg (NEGATIVE) Lactic Acid Level 1.5 mmol/L (0.4-2.0) Troponin I High Sensitivity 38 ng/L (</=34) Test 11/12/24 08:06 11/13/24 04:16 11/14/24 15:47 Acetaminophen Level 8.0 UG/ML (10.0-20.0) White Blood Count 6.8 10^3/uL (4.4-10.8) Red Blood Count 4.23 10^6/uL (4.0-5.20) Hemoglobin 11.8 g/dL (12.2-16.2) Hematocrit 35.1 % (36.0-46.0) Mean Corpuscular Volume 83.0 fL (80.0-100.0) Mean Corpuscular Hemoglobin 28.0 pg (28.0-32.0) Mean Corpuscular Hemoglobin Concent 33.7 g/dL (32.0-36.0) Red Cell Distribution Width 13.9 % (11.8-14.3) Platelet Count 220 10^3/uL (140-450) Mean Platelet Volume 8.7 fL (6.9-10.8) Neutrophils (%) (Auto) 54.7 % (37.0-80.0) Lymphocytes (%) (Auto) 37.4 % (10.0-50.0) Monocytes (%) (Auto) 6.3 % (0.0-12.0) Eosinophils (%) (Auto) 1.0 % (0.0-7.0) Basophils (%) (Auto) 0.6 % (0.0-2.0) Neutrophils # (Auto) 3.7 10 ^3/uL (1.6-8.6) Lymphocytes # (Auto) 2.6 10 ^3/uL (0.4-5.4) Monocytes # (Auto) 0.4 10 ^3/uL (0-1.3) Eosinophils # (Auto) 0.1 10 ^3/uL (0-0.8) Basophils # (Auto) 0 10 ^3/uL (0-0.2) Nucleated Red Blood Cells 0.0 % Sodium Level 145 mmol/L (136-145) Potassium Level 3.7 mmol/L (3.5-5.1) Chloride Level 112 mmol/L (98-107) Carbon Dioxide Level 23 mmol/L (20-31) Anion Gap 10 (5-15) Blood Urea Nitrogen 8 mg/dL (9-23) Creatinine 0.75 mg/dL (0.550-1.02) Glomerular Filtration Rate Calc 103 mL/min (>90) BUN/Creatinine Ratio 10.7 (10.0-20.0) Serum Glucose 85 mg/dL (74-106) Calcium Level 8.5 mg/dL (8.7-10.4) Total Bilirubin 0.4 mg/dL (0.2-1.0) Aspartate Amino Transf (AST/SGOT) 17 U/L (13-40) Alanine Aminotransferase (ALT/SGPT) 14 U/L (7-40) Alkaline Phosphatase 70 U/L (46-116) Total Protein 5.6 g/dL (5.7-8.2) Albumin 3.4 g/dL (3.2-4.8) Prothrombin Time 10.9 sec (9.3-11.8) Prothromb Time International Ratio 1.03 (0.9-1.15) Vitals Vital Signs Date Time Temp Pulse Resp B/P (MAP) Pulse Ox O2 Delivery O2 Flow Rate FiO2 11/15/24 09:00 98.2 84 18 111/67 (82) 99 98.2 11/15/24 08:20 Room Air* 0 21 Current medications Current Medications Medications Dose Ordered Sig/Gelacio Route Start Time Stop Time Status Last Admin Dose Admin Ibuprofen 600 mg Q8HP PRN PO 11/13/24 11:45 11/15/24 13:37 600 MG PSYCHIATRY CONSULTATION FOLLOW UP Reason for Consult: Reassessment after suicide attempt SUBJECTIVE: Today, pt says she is doing good, a whole lot better. She says she just wants to go home, move forward and change everything. Pt was able to see her daughter and grandson, says it was eye opening. It made her feel really happy. Pts had been there everyday. They talked and both plan to move forward with their family. Pt says she spent time with social work there, discussed suicide safety plan. Pt recounts steps she can take if SI recurs. Says she intends to get help, need be, going forward. Pt does not have a therapist, but she will re-establish care. Pt does not think she needs medication. She denies use or drugs or alcohol. OBJECTIVE: Mental Status Exam The patient is a 39-year-old woman who appears her stated age, casually dressed, and well-groomed. She is calm, cooperative, and engages readily in conversation. Speech is normal in rate, rhythm, and volume. Mood is described as a whole lot better, with affect bright and congruent. Thought process is linear, logical, and goal-directed. Thought content is future-oriented; she denies suicidal or homicidal ideation, intent, or plan. She reports positive experiences seeing her daughter and grandson, and expresses motivation to move forward with her family. No delusions, hallucinations, or other psychotic symptoms are present. She is alert and oriented 3, with intact memory and concentration. Insight is fair, demonstrated by her ability to articulate steps in her safety plan, and judgment is intact, as she identifies appropriate help-seeking behaviors if suicidal thoughts recur. Differential Diagnosis (DDx) Adjustment Disorder with Depressed Mood. Major Depressive Disorder, in partial remission Unspecified Depressive Disorder Substance-induced mood disorder ASSESSMENT: This is a 39-year-old woman with a history of depression who presented after a Nyquil overdose in the context of marital stress and hopelessness. On reevaluation, she is markedly improved, reporting positive mood, motivation, and commitment to her family. She engaged with social work, created a suicide safety plan, and can articulate coping steps if suicidal ideation recurs. She denies current SI, HI, or psychotic symptoms. Collateral from her indicates firearms have been removed from the home. At this time, she no longer meets criteria for involuntary psychiatric hold as she is not an acute danger to herself or others. RECOMMENDATIONS: 1. Legal: Discontinue 5150; involuntary psychiatric hold no longer indicated. File firearm prohibition given recent suicide attempt and documented firearm a ccess (noting reports firearms have been removed). 2. Disposition: Safe for discharge home with family support.\Outpatient referrals for psychotherapy and psychiatric follow-up. 3. Medications: Patient currently declines psychiatric medication; defer initiation and recommend outpatient evaluation for future treatment needs. 4. Other - Provide crisis resources (e.g., suicide prevention hotline, local crisis stabilization unit). - Encourage adherence to safety plan and re-engagement with outpatient mental health care. - Social work to facilitate outpatient therapy and psychiatry linkage. KYLAH GREEN MD Nov 15, 2024 13:44
--- NOTE | 2024-11-15 19:27 | DVHDS2 ---
Discharge Summary Date of Admission Nov 11, 2024 at 23:16 Date of Discharge: Nov 15, 2024 Labs/Diagnostic Data: Laboratory Results Test 11/14/24 15:47 11/13/24 04:16 11/12/24 08:06 11/12/24 06:23 Prothrombin Time 10.9 sec (9.3-11.8) Prothrombin Time INR 1.03 (0.9-1.15) White Blood Count 6.8 10^3/uL (4.4-10.8) Red Blood Count 4.23 10^6/uL (4.0-5.20) Hemoglobin 11.8 g/dL (12.2-16.2) Hematocrit 35.1 % (36.0-46.0) Mean Corpuscular Volume 83.0 fL (80.0-100.0) Mean Corpuscular Hemoglobin 28.0 pg (28.0-32.0) Mean Corpuscular Hemoglobin Concent 33.7 g/dL (32.0-36.0) Red Cell Distribution Width 13.9 % (11.8-14.3) Platelet Count 220 10^3/uL (140-450) Mean Platelet Volume 8.7 fL (6.9-10.8) Neutrophils (%) (Auto) 54.7 % (37.0-80.0) Lymphocytes (%) (Auto) 37.4 % (10.0-50.0) Monocytes (%) (Auto) 6.3 % (0.0-12.0) Eosinophils (%) (Auto) 1.0 % (0.0-7.0) Basophils (%) (Auto) 0.6 % (0.0-2.0) Neutrophils # (Auto) 3.7 10 ^3/uL (1.6-8.6) Lymphocytes # (Auto) 2.6 10 ^3/uL (0.4-5.4) Monocytes # (Auto) 0.4 10 ^3/uL (0-1.3) Eosinophils # (Auto) 0.1 10 ^3/uL (0-0.8) Basophils # (Auto) 0 10 ^3/uL (0-0.2) Nucleated Red Blood Cells 0.0 % Sodium Level 145 mmol/L (136-145) Potassium Level 3.7 mmol/L (3.5-5.1) Chloride Level 112 mmol/L (98-107) Carbon Dioxide Level 23 mmol/L (20-31) Anion Gap 10 (5-15) Blood Urea Nitrogen 8 mg/dL (9-23) Creatinine 0.75 mg/dL (0.550-1.02) Glomerular Filtration Rate Calc 103 mL/min (>90) BUN/Creatinine Ratio 10.7 (10.0-20.0) Serum Glucose 85 mg/dL (74-106) Calcium Level 8.5 mg/dL (8.7-10.4) Total Bilirubin 0.4 mg/dL (0.2-1.0) Aspartate Amino Transferase (AST) 17 U/L (13-40) Alanine Aminotransferase (ALT) 14 U/L (7-40) Alkaline Phosphatase 70 U/L (46-116) Total Protein 5.6 g/dL (5.7-8.2) Albumin 3.4 g/dL (3.2-4.8) Acetaminophen Level 8.0 UG/ML (10.0-20.0) Troponin I High Sensitivity 38 ng/L (</=34) Test 11/12/24 02:23 11/12/24 02:02 11/11/24 21:18 Lactic Acid Level 1.5 mmol/L (0.4-2.0) Urine Color Colorless (Yellow) Urine Clarity Clear (Clear) Urine pH 6.0 (5.0-9.0) Urine Specific [place] 1.008 (1.001-1.035) Urine Protein Negative (Negative) Urine Ketones 1+ (Negative) Urine Blood Negative /uL (Negative) Urine Nitrite Negative (Negative) Urine Bilirubin Negative (Negative) Urine Urobilinogen Normal mg/dL (Negative) Urine Leukocyte Esterase Negative /uL (Negative) Urine RBC <1 /hpf (0 - 4) Urine Microscopic WBC 1 /HPF (0-5) Urine Squamous Epithelial Cells Few /hpf (<5) Urine Bacteria Few /hpf (None Seen) Urine Glucose Normal mg/dL (Normal) Urine Opiates Screen Neg (NEGATIVE) Urine Fentanyl Screen Neg (NEGATIVE) Urine Barbiturates Screen Neg (NEGATIVE) Urine Phencyclidine Screen Neg (NEGATIVE) Urine Amphetamines Screen Neg (NEGATIVE) Urine Benzodiazepines Screen Neg (NEGATIVE) Urine Cocaine Screen Neg (NEGATIVE) Urine Cannabinoids Screen Neg (NEGATIVE) Hemoglobin A1c 4.7 % A1C (<5.7) Magnesium Level 2.1 mg/dL (1.6-2.6) Salicylates Level < 3.0 mg/dL (-30) Plasma/Serum Blood Alcohol < 3.0 mg/dL (<10) Other Laboratory Tests 11/13/24 04:16 Brief Hx & Hospital Course: 39 F admitted for Tylenol ingestion with intention to self harm. On admission tachycardic, nonresponsive, with leukocytosis, hypocalcemic, elevated trop, elevated lactate, and high Tylenol levels which now normal. Received Nacetylcysteine, naloxone, fluids, and ceftriaxone. She reported prior SI and self harm behavior since teenage years, this is first SA, not on any meds, no halucinations, coherent train of thoughts, sad affect. seen by psych, palced on 5150. no fuurther SI after the weekend, reeval psych cleared, no sequala of intox. stable to [place] home. educated on crisis centers and firearm removed. no meds. Condition at Discharge: Stable Final Diagnosis/Problems List intentional drug ingestion Tylenol overdose suicide attempt type 2 VT demand ischemia lactic acidosis acute toxic encephalopathy possible underlying personality disorder or MDD Discharge Disposition: Home Discharge Instruct/Medications Diet: Regular Activity: No Restrictions, As Tolerated Scheduled PRN Hydrocodone-Acetaminophen (Hydrocodone Bitartrate/AC 10-325 mg), 1 TAB PO Q4HPRN PRN Ibuprofen (Ibuprofen), 800 MG PO TID PRN Discharge Statement: "Patient was advised to return to the ER or call 911 if any headaches, dizziness, shortness of breath, chest pain, abdominal pain, bleeding, fevers, or worsening of medical condition. Patient was counseled about treatment plan, medications, possible side effects, patientverbalized understanding. All questions were answered to the best of my ability. This discharge took greater then 30 minutes in planning, reviewing documentation, counseling the patient, and discussing with other team members." ASSESSMENT ASSESSMENT Assessment ingestion tylenol intox Date of Service: Nov 15, 2024 Billing Provider: ROX TORO MD Common Visit Codes: [id number] DISCH DAY >30min ROX TORO MD Nov 15, 2024 19:27
== END 2024-11-15 18:30 | disposition home or self-care (01) | DRG 817 ==
LOC: ER 21:21 → OVERFLOW 23:16 → TELE-WESTW 11-12 04:37
PROVIDERS: ADMIT Student in an Organized Health Care Education/Training Program; ATTEND Student in an Organized Health Care Education/Training Program
DX: T39.1X2A Poisoning by 4-Aminophenol derivatives, intentional self-harm, initial encounter (principal); N17.0 Acute kidney failure with tubular necrosis; G92.8 Other toxic encephalopathy; E87.20 Acidosis, unspecified; I21.A1 Myocardial infarction type 2; E87.6 Hypokalemia; G43.909 Migraine, unspecified, not intractable, without status migrainosus; E78.5 Hyperlipidemia, unspecified; D72.829 Elevated white blood cell count, unspecified; F32.9 Major depressive disorder, single episode, unspecified; F60.9 Personality disorder, unspecified; E83.51 Hypocalcemia; G89.29 Other chronic pain; Z90.710 Acquired absence of both cervix and uterus; Y92.89 Other specified places as the place of occurrence of the external cause; Z88.1 Allergy status to other antibiotic agents; Z88.5 Allergy status to narcotic agent; Z63.0 Problems in relationship with spouse or partner
CPT/HCPCS: 36415; 71045; 80053; 80307; 80320; 80329; 81001; 83036; 83605; 83735; 84484; 85025; 85610; 93005; 96361; 96374; 99291; G0378; J2405; J3480; J7060